=== PATIENT | female | born 1990 | race Caucasian/White ===

== ENCOUNTER 2016-03-09 18:20 | Emergency (ER) | payer OTHER ==
[2016-03-09] MEDS ORDERED: SODIUM CHLORIDE 1,000 ML IV ONE ×2 (19:12→19:13)
[2016-03-09] MEDS ORDERED: ONDANSETRON 4 MG/2 ML VIAL IVPB ONE (19:13)
--- NOTE | 2016-03-09 19:15 | PDOC ---
[id number] No Limitations - History of Present Illness Initial Comments: 03/09/16 20:09 The patient is a 25 year old female, who is currently 6 weeks , with a significant past medical history of anxiety who presents to the emergency department with cough, nausea, vomiting since sunday and vaginal bleeding today. She reports having multiple episodes (more than 10 per day) of vomiting throughout the day. She describes the vomiting as yellow and clear without blood. She reports not being able to keep down any foods or liquids secondary to her vomiting. She reports having one episode of a tablespoon of vaginal bleeding after going to the bathroom today. She reports also being constipated having only 2 bowel movement this week and abdominal cramping, which notes could be to her recent diagnosis of a UTI after visiting an Urgent Care Facility and being sent to another ER this week. She reports being unable to keep down her UTI antibiotics due to her nausea and vomiting. She denies any sick contacts. She reports not contacting a OBGYN as of yet. PAST SURGICAL HISTORY: No significant history. FAMILY HISTORY: No pertinent history. SOCIAL HISTORY: Patient lives with family and is employed. MEDICATIONS: Reviewed. ALLERGIES: As per nursing notes. ROS General: No fevers or chills, no weakness, no weight loss HEENT: No change in vision. No sore throat,. No ear pain CardioVascular: No chest pain or shortness of breath Respiratory:Yes cough, No wheezing. Gastrointestinal: Yes nausea, vomiting, constipation No diarrhea. No rectal bleeding Genitourinary: Yes vaginal bleeding. No dysuria, hematuria, or frequency Musculoskeletal: No joint or muscle pain or swelling Neurologic: No headache, vertigo, dizziness or loss of consciousness Psychiatric: No depression Skin: No rashes or easy bruising Endocrine: no increased thirst or abnormal weight change Allergic: no skin or latex allergy All other systems reviewed and normal Exam: General: Well-nourished well-developed individual, no acute distress HEENT: Throat: Normal, tonsils normal, no erythema or exudate Neck: Supple, no meningeal signs, no lymphadenopathy Eyes: Pupils equal reactive and round, extraocular motion intact Chest: Nontender to palpation Cardiac: S1-S2 normal, regular rate and rhythm, no murmurs rubs or gallops Respiratory: Lungs clear to auscultation bilateral Abdomen: Mild tenderness toward lower abdomen. No rebound or guarding. Soft, nondistended, normal bowel sounds. PROFESSOR OF HISTORY: Small amount brownish discharge in vaginal vault. No bright red discharge from os, surgical os is close. Unable to palpate and enlarged uterus at this time. Extremities: Warm, dry, no cyanosis, clubbing, or edema Skin: No rashes Neuro: Alert and oriented x3, nonfocal exam, grossly intact, normal gait Psych: Normal mood and affect <Jamey Dye - Last Filed: 03/09/16 20:09> - General History Source: Patient Exam Limitations: No Limitations - History of Present Illness Initial Comments: 03/10/16 00:11 A portion of this note was documented by scribe services under my direction. I have reviewed the details of the note, within reason, and agree with the documentation. The case summary and management plan written by me. Assessment and plan: This is a 25-year-old female with hyperemesis gravidarum who came in with large amount of ketones in her urine secondary to the hyperemesis. Patient was hydrated with 2 L of normal saline and then 1 L of D5 normal saline and urine is completely clear of ketones after hydration. Patient able to tolerate by mouth's in the emergency room with no further vomiting and discharged home with prescriptions for anti-emetics. Patient was told she needs to follow-up with her OB as soon as possible to help her manage her hyperemesis. <Kati Barksdale I - Last Filed: 03/10/16 00:12> - General Chief Complaint: Nausea/Vomiting Stated Complaint: vomiting, vaginal bleeding Time Seen by Provider: 03/09/16 19:09 Past History <Jamey Dye - Last Filed: 03/09/16 20:09> - Past Medical History Other medical history: 6 week - Reproductive History Is Patient Now?: Yes (#): 1 - Immunization History Immunization Up to Date: Yes - Psycho/Social/Smoking Cessation Hx Anxiety: No Suicidal Ideation: No Smoking Status: No Smoking History: Never smoked Have you smoked in the past 12 months: No Number of Cigarettes Smoked Daily: 0 Information on smoking cessation initiated: No Hx Alcohol Use: No Drug/Substance Use Hx: No Substance Use Type: None <Kati Barksdale I - Last Filed: 03/10/16 00:12> - Past Medical History Allergies/Adverse Reactions: Allergies Allergy/AdvReac Type Severity Reaction Status Date / Time No Known Allergies Allergy Verified 03/17/12 01:21 Home Medications: Ambulatory Orders Macrodantin 03/09/16 Metoclopramide HCl [Reglan] 10 mg PO TID #30 tablet 03/09/16 Ondansetron [Zofran *Odt*] 8 mg SL TID #30 od.tablet 03/09/16 *Physical Exam - Vital Signs Last Vital Signs Temp Pulse Resp BP Pulse Ox 99.5 F 120 H 20 120/79 99 03/09/16 18:21 03/09/16 18:21 03/09/16 18:21 03/09/16 18:21 03/09/16 18:21 <Jamey Dye - Last Filed: 03/09/16 20:09> - Vital Signs Last Vital Signs Temp Pulse Resp BP Pulse Ox 99.5 F 120 H 20 120/79 99 03/09/16 18:21 03/09/16 18:21 03/09/16 18:21 03/09/16 18:21 03/09/16 18:21 <Kati Barksdale I - Last Filed: 03/10/16 00:12> ED Treatment Course - LABORATORY CBC & Chemistry Diagram: 03/09/16 19:10 03/09/16 19:10 - ADDITIONAL ORDERS Additional order review: Laboratory Results 03/09/16 19:10 Sodium 131 L Potassium 3.2 L Chloride 99 Carbon Dioxide 24 Anion Gap 8 BUN 5 L Creatinine 0.5 L Creat Clearance w eGFR > 60 Random Glucose 95 Calcium 8.8 Total Bilirubin 0.5 AST 22 ALT 17 Alkaline Phosphatase 52 Total Protein 6.6 Albumin 4.0 03/09/16 19:10 RBC 4.73 MCV 83.8 MCHC 32.8 RDW 12.1 MPV 7.3 L Neutrophils % Y Lymphocytes % Y - Medications Given in the ED: ED Medications Discontinued Medications Generic Name Dose Route Start Last Admin Trade Name Freq PRN Reason Stop Dose Admin Ondansetron HCl 8 mg 03/09/16 19:13 03/09/16 19:23 Zofran Injection IVPB 03/09/16 19:14 8 mg ONCE ONE Administration <Jamey Dye - Last Filed: 03/09/16 20:09> - LABORATORY CBC & Chemistry Diagram: 03/09/16 19:10 03/09/16 19:10 <Kati Barksdale I - Last Filed: 03/10/16 00:12> *DC/Admit/Observation/Transfer - Attestations Scribe Attestion: 03/09/16 20:09 Documentation prepared by Jamey Dye, acting as medical records auditor for Kati Barksdale MD. <Jamey Dye - Last Filed: 03/09/16 20:09> - Discharge Dispostion Admit: No <Ktai Barksdale I - Last Filed: 03/10/16 00:12> Diagnosis at time of Disposition: Hyperemesis gravidarum, Dehydration - Discharge Dispostion Disposition: HOME Condition at time of disposition: Improved - Prescriptions Prescriptions: Metoclopramide HCl [Reglan] 10 mg PO TID #30 tablet Ondansetron [Zofran *Odt*] 8 mg SL TID #30 od.tablet - Patient Instructions Printed Discharge Instructions: DI for Hyperemesis Gravidarum Additional Instructions: For the vomiting U can take either Zofran or Reglan I am giving a prescription for both. Whichever when you decide to take or which ever one works best take it one tablet 3 times a day as needed for nausea and vomiting. It is very important that you call an OB and get an appointment with an OB as soon as possible to help you manage the nausea and vomiting as well as monitor the vaginal spotting. Return to the emergency department immediately with ANY new, persistent or worsening symptoms. Continue any medications as previously prescribed by your physician. You should follow up with your primary doctor as soon as possible regarding today's emergency department visit. . Please make sure your doctor reviews the results of your emergency evaluation. Thank you for coming to the Emergency Department today for your care. It was a pleasure to see you today. Please note that your evaluation is INCOMPLETE until you follow-up with your doctor.
[2016-03-09] MEDS ORDERED: ONDANSETRON 4 MG/2 ML VIAL ONE ×2 (19:19→19:20)
[2016-03-09 19:29] LABS: MCH 27.5 pg (25.7-33.7); MCHC 32.8 g/dl (32.0-36.0); MEAN CELL VOLUME 83.8 fl (80-96); MEAN PLT VOLUME 7.3 fl (7.5-11.1); PLATELET COUNT 249 K/MM3 (134-434); RDW 12.1 % (11.6-15.6); WHITE BLOOD COUNT 9.5 K/mm3 (4.0-10.0)
[2016-03-09 19:36] LABS: ALK PHOS 52 U/L (32-92); ANION GAP 8 (8-16); BILIRUBIN,TOTAL 0.5 mg/dl (0.2-1.0); CALCIUM 8.8 mg/dl (8.4-10.2); CO2 24 mmol/L (22-28); CREATININE 0.5 mg/dl (0.6-1.3); GLUCOSE,RANDOM 95 mg/dl (74-106); SGOT/AST 22 U/L (10-42); SGPT/ALT 17 U/L (10-40); TOT PROT 6.6 g/dl (6.4-8.3)
[2016-03-09 19:46] VITALS: BP 120/79; PULSE 120; TEMP 99.5; BMI 21.7
[2016-03-09 21:46] LABS: PH,URINE 5.5 (4.5-8); URINE APPEARANCE Clear; URINE BILIRUBIN Negative (NEGATIVE); URINE GLUCOSE (UA) Negative (NEGATIVE); URINE KETONE 4+ (NEGATIVE); URINE LEUK ESTERASE Negative (NEGATIVE); URINE NITRITE Negative (NEGATIVE); URINE PROTEIN Negative (NEGATIVE); URINE UROBILINOGEN 0.2 E.U/dl (0.2-1.0)
[2016-03-09 21:47] LABS: URINE BLOOD 3+ (NEGATIVE); URINE COLOR YELLOW
[2016-03-09] MEDS ORDERED: DEXTROSE 5%-NORMAL SALINE 1,000 ML IV SCH (22:00)
[2016-03-09 22:19] LABS: URINE WBC 0-2 (3-5)
[2016-03-09 22:20] LABS: URINE BACTERIA FEW /hpf (NEGATIVE)
[2016-03-09 23:10] LABS: PH,URINE 5.5 (4.5-8); URINE APPEARANCE Clear; URINE BILIRUBIN Negative (NEGATIVE); URINE GLUCOSE (UA) 2+ (NEGATIVE); URINE KETONE Negative (NEGATIVE); URINE LEUK ESTERASE Negative (NEGATIVE); URINE NITRITE Negative (NEGATIVE); URINE PROTEIN Negative (NEGATIVE); URINE UROBILINOGEN 0.2 E.U/dl (0.2-1.0)
[2016-03-09 23:11] LABS: URINE BLOOD 2+ (NEGATIVE); URINE COLOR YELLOW
[2016-03-09 23:21] LABS: URINE BACTERIA FEW /hpf (NEGATIVE); URINE WBC 0-2 (3-5)
== END 2016-03-09 23:20 | disposition home or self-care (01) ==
LOC: FER 18:20
PROC: 3E033GC Introduction of Other Therapeutic Substance into Peripheral Vein, Percutaneous Approach (ICD-10-PCS; principal; 2016-03-09)
PROC: 3E0337Z Introduction of Electrolytic and Water Balance Substance into Peripheral Vein, Percutaneous Approach (ICD-10-PCS; 2016-03-09)
DX: O26.891 Other specified pregnancy related conditions, first trimester (principal); O21.0 Mild hyperemesis gravidarum; Z3A.01 Less than 8 weeks gestation of pregnancy; F41.9 Anxiety disorder, unspecified
CPT/HCPCS: 36415; 76815-TC; 80053; 81003; 81015; 84702; 85025; 86850; 86900; 86901; 99284-25